=== PATIENT | female | born 1985 | race African-American/Black ===

== ENCOUNTER 2017-11-19 18:13 | Emergency (ER) | payer OTHER ==
[~2017-11-19] VITALS: Ht 172.7 cm; Wt 86.4 kg
[~2017-11-19 18:13] MED LIST: [UNRECOGNIZED DRUG - OTHER]
[2017-11-19] MEDS ORDERED: SULF1TAB42 PO (18:35)
[2017-11-19] MEDS ORDERED: BUPIVACAINE HCL/PF 0.5% 10 ML VIAL SQ ONE (21:45)
[2017-11-19] MEDS ORDERED: BUPIVACAINE HCL/PF 0.5% 30 ML VIAL SQ ONE (22:00)
[2017-11-19 22:29] VITALS: BP 155/79
[2017-11-19] MEDS ORDERED: HYDROCODONE/ACETAMINOPHEN 5-325 MG TABLET PO ONE (22:30)
== END 2017-11-19 23:06 | disposition home or self-care (01) ==
LOC: EMS 18:15
DX: L02.811 Cutaneous abscess of head [any part, except face] (principal); K21.9 Gastro-esophageal reflux disease without esophagitis; F17.210 Nicotine dependence, cigarettes, uncomplicated
CPT/HCPCS: 10060; 99283; J3490